=== PATIENT | male | born 1950 | race Caucasian/White ===

== ENCOUNTER 2019-06-13 23:08 | Inpatient (IN) | payer MEDICARE ==
--- NOTE | 2019-06-13 23:23 | ED Physician Documentation ---
PD HPI ABD PAIN - Stated complaint Stated Complaint: AB PX/VOMITING/CP - Chief complaint Chief Complaint: Abd Pain - History obtained from History obtained from: Patient - History of Present Illness Timing - onset: Enter time (17:00), Today Timing - duration: Hours Timing - details: Abrupt onset, Constant, Waxing and waning Pain level max: 10 Pain level now: 10 Quality: Pain Location: All over / everywhere Radiation: Other (does not radiate) Associated symptoms: Nausea, Vomiting. No: Fever, Diarrhea, Constipation, Melena, Hematochezia Similar symptoms before: Has not had sx before Recently seen: Not recently seen - Additional information Additional information: c/o sudden onset diffuse abdominal pain approximately 5 PM shortly after eating a meal, associated with nausea and vomiting. Has not had similar symptoms before. Review of Systems Constitutional: reports: Reviewed and negative Eyes: reports: Reviewed and negative Ears: reports: Reviewed and negative Nose: reports: Reviewed and negative Throat: reports: Reviewed and negative Cardiac: reports: Reviewed and negative Respiratory: reports: Reviewed and negative GI: reports: Abdominal Pain, Nausea, Vomiting. denies: Abdominal Swelling, Constipation, Diarrhea, Hematemesis, Bloody / black stool : denies: Dysuria, Frequency, Hematuria Skin: reports: Reviewed and negative Musculoskeletal: reports: Reviewed and negative Neurologic: reports: Reviewed and negative PD PAST MEDICAL HISTORY - Past Medical History Past Medical History: No - Past Surgical History Past Surgical History: Yes General: Other (umbilical hernia repair) - Allergies Allergies/Adverse Reactions: Allergies Allergy/AdvReac Type Severity Reaction Status Date / Time No Known Drug Allergies Allergy Verified 06/13/19 23:13 - Living Situation Living Arrangement: reports: At home - Social History Does the pt smoke?: No - Family History Family history: reports: Non contributory PD ED PE NORMAL - Vitals Vital signs reviewed: Yes - General General: Alert and oriented X 3, Well developed/nourished, Other (obvious severe painful distress) - HEENT HEENT: Moist mucous membranes - Neck Neck: Supple, no meningeal sign - Cardiac Cardiac: RRR, No murmur - Respiratory Respiratory: No respiratory distress, Clear bilaterally - Abdomen Abdomen: Soft, Non distended - Back Back: No CVA TTP - Derm Derm: Normal color, Warm and dry, No rash - Extremities Extremities: No edema PD ED PE EXPANDED - Abdomen Abdomen: Tender to palpation (mild tenderness to palpation periubilicus without rebound or guarding). No: Rebound, Guarding Results - Vitals Vitals: Vital Signs - 24 hr 06/13/19 06/14/19 23:13 01:16 Temperature 36.6 C Heart Rate 65 71 Respiratory 14 16 Rate Blood Pressure 173/71 H 144/54 H O2 Saturation 95 93 Oxygen O2 Source Room air - EKG (time done) No standard instances Rate: Rate (enter#) (67) Rhythm: NSR, LAE [place]: Normal Intervals: Normal [place], Other (NSIVCD) QRS: Normal Ischemia: Normal ST segments - Labs Labs: Laboratory Tests 06/13/19 06/13/19 06/14/19 23:20 23:20 00:57 WBC 12.2 H RBC 4.79 Hgb 15.5 Hct 45.2 MCV 94.4 H MCH 32.4 H MCHC 34.3 RDW 13.4 Plt Count 135 MPV 8.9 Neut # (Auto) 10.4 H Lymph # (Auto) 1.0 L Polk # (Auto) 0.6 Eos # (Auto) 0.0 Baso # (Auto) 0.0 Absolute Nucleated RBC 0.00 Nucleated RBC % 0.0 Sodium 131 L Potassium 3.0 L Chloride 96 L Carbon Dioxide 25 Anion Gap 10.0 BUN 18 Creatinine 0.9 Estimated GFR (MDRD) 83 L Glucose 179 H Lactic Acid Calcium 9.4 Total Bilirubin 0.8 AST 23 ALT 20 Alkaline Phosphatase 67 Total Protein 8.8 H Albumin 5.2 Globulin 3.6 Albumin/Globulin Ratio 1.4 Lipase 25 Urine Color YELLOW Urine Clarity CLEAR Urine pH 5.0 Ur Specific [place] 1.025 Urine Protein NEGATIVE Urine Glucose (UA) NEGATIVE Urine Ketones 15 H Urine Occult Blood NEGATIVE Urine Nitrite NEGATIVE Urine Bilirubin NEGATIVE Urine Urobilinogen 0.2 (NORMAL) Ur Leukocyte Esterase NEGATIVE Ur Microscopic Review NOT INDICATED Urine Culture Comments NOT INDICATED 06/14/19 01:03 WBC RBC Hgb Hct MCV MCH MCHC RDW Plt Count MPV Neut # (Auto) Lymph # (Auto) Polk # (Auto) Eos # (Auto) Baso # (Auto) Absolute Nucleated RBC Nucleated RBC % Sodium Potassium Chloride Carbon Dioxide Anion Gap BUN Creatinine Estimated GFR (MDRD) Glucose Lactic Acid 2.6 H Calcium Total Bilirubin AST ALT Alkaline Phosphatase Total Protein Albumin Globulin Albumin/Globulin Ratio Lipase Urine Color Urine Clarity Urine pH Ur Specific [place] Urine Protein Urine Glucose (UA) Urine Ketones Urine Occult Blood Urine Nitrite Urine Bilirubin Urine Urobilinogen Ur Leukocyte Esterase Ur Microscopic Review Urine Culture Comments - Rads (name of study) CT A/P with IV contrast Radiology: Prelim report reviewed, See rad report, Other (unable to tolerate PO contrast) PD MEDICAL DECISION MAKING - ED course Complexity details: reviewed results, re-evaluated patient, considered differential, d/w patient ED course: D/W Dr. Bennett (senior vice president and chief information officer surgery), recommends admit to hospitalist service. D/W Dr. Suazo, accepts to hospitalist service. Departure - Departure Disposition: ED Place in Observation Clinical Impression: Small bowel obstruction Condition: Stable Discharge Date/Time: 06/14/19 02:52
[2019-06-13] MEDS ORDERED: ONDANSETRON 4 MG/2 ML VIAL ONE (23:35)
[2019-06-13 23:36] LABS: BASOPHILS % (AUTO) 0.3 %; EOSINOPHILS % (AUTO) 0.2 %; HGB - HEMOGLOBIN 15.5 g/dL (14.0-18.0); LYMPHOCYTES % (AUTO) 8.5 %; MEAN CORPUSCULAR HEMOGLOBIN 32.4 pg (27.0-31.0); MEAN CORPUSCULAR HGB CONC 34.3 g/dL (32.0-36.0); MEAN CORPUSCULAR VOLUME 94.4 fL (80.0-94.0); MEAN PLATELET VOLUME 8.9 fL (7.4-11.4); MONOCYTES # (AUTO) 0.6 10^3/uL (0.0-1.0); MONOCYTES % (AUTO) 4.8 %; NEUTROPHILS # (AUTO) 10.4 10^3/uL (1.5-6.6); NEUTROPHILS % (AUTO) 85.3 %; PLT - PLATELET COUNT 135 10^3/uL (130-450); RED BLOOD COUNT 4.79 10^6/uL (4.70-6.10); RED CELL DISTRIBUTION WIDTH 13.4 % (12.0-15.0); WHITE BLOOD COUNT 12.2 x10^3/uL (4.8-10.8)
[2019-06-13] MEDS ORDERED: HYDROmorphone 1 MG/ML CARPUJECT ONE (23:38)
[2019-06-13] MEDS ORDERED: HYDROmorphone 1 MG/ML CARPUJECT IVP STA (23:39)
[2019-06-13] MEDS ORDERED: SODIUM CHLORIDE 0.9% 1,000 ML IV STA (23:39)
[2019-06-13] MEDS ORDERED: ONDANSETRON 4 MG/2 ML VIAL IVP STA (23:39)
[2019-06-13 23:55] LABS: ALBUMIN 5.2 g/dL (3.2-5.5); ALBUMIN/GLOBULIN RATIO 1.4 (1.0-2.2); BILIRUBIN,TOTAL 0.8 mg/dL (0.2-1.0); CALCIUM 9.4 mg/dL (8.5-10.3); CREATININE 0.9 mg/dL (0.6-1.2); TOTAL PROTEIN 8.8 g/dL (6.7-8.2)
[2019-06-13] MEDS ORDERED: IOVERSOL 320 100 ML VIAL IVP ONE (23:55)
[2019-06-13] MEDS ORDERED: IOVERSOL 320 50 ML VIAL ONE (23:56)
[2019-06-14] MEDS ORDERED: PROMETHAZINE INJ 25 MG in SODIUM CHLORIDE 0.9% 50 ML IV STA (00:01)
[2019-06-14] MEDS ORDERED: IOVERSOL 320 100 ML VIAL IVP ONE (00:31)
[2019-06-14] MEDS ORDERED: HYDROmorphone 1 MG/ML CARPUJECT IVP STA (00:50)
--- NOTE | 2019-06-14 01:14 | CT Report ---
Reason: abd. pain, diffuse Procedure Date: 06/14/2019 Accession Number: [id number] / [id number] Procedure: CT - Abdomen/Pelvis W CPT Code: Final Report FULL RESULT: EXAM: CT ABDOMEN AND PELVIS EXAM DATE: 06/14/2019 12:32 AM. CLINICAL HISTORY: Abd. pain, diffuse. COMPARISONS: None. TECHNIQUE: Routine helical CT imaging was performed through the abdomen and pelvis. IV contrast: OPTIRAY 320. Enteric contrast: No. Reconstructions: Coronal and sagittal. In accordance with CT protocol optimization, one or more of the following dose reduction techniques were utilized for this exam: automated exposure control, adjustment of mA and/or KV based on patient size, or use of iterative reconstructive technique. FINDINGS: Lung Bases: Unremarkable. Liver: The liver is normal in size. This is cyst along the peripheral aspect of the right lobe with a diameter measuring 13 mm x 7 mm. Gallbladder/Bile Ducts: Unremarkable. Spleen: Normal. Pancreas: Normal. Adrenal Glands: Normal. Kidneys: The kidneys are normally positioned and excreting contrast. There are 2 contiguous cysts in the peripheral aspect of the left lower kidney. 1 cyst has a diameter measuring 35 mm x 32 mm and the other cyst measures 35 mm x 41 mm. These have water attenuation. Peritoneal Cavity/Bowel: Normal. No free fluid, free air or adenopathy. No masses or acute inflammatory process. There is moderate fluid-filled distention of the proximal and mid small bowel there is a transition point in the mid small bowel without any obstructing lesions. The distal small bowel was completely decompressed. There is a small amount of inflammation within the adjacent mesentery related to the distended loops. There is a small amount of free fluid near the edge of the liver. There are no inflammatory changes of the colon. Pelvic Organs: Normal. The bladder and visualized pelvic organs are within normal limits. Vasculature: No aneurysms or other significant abnormality. Bones: No significant abnormality. Other: None. IMPRESSION: 1. Findings compatible with partial or early complete mid small bowel obstruction without any discernible obstructing masses. Findings may be related to adhesions versus inflammation. There is some edema or inflammatory changes in the adjacent small bowel mesentery and a small amount of free fluid along the superior edge of the liver. 2. Two prominent cysts along the peripheral inferior aspect of the left kidney. RADIA
[2019-06-14 02:10] LABS: BILIRUBIN,URINE NEGATIVE (NEGATIVE); GLUCOSE, URINE (UA) NEGATIVE (NEGATIVE); KETONES,URINE (UA) 15 mg/dL (NEGATIVE); LEUKOCYTE ESTERASE, URINE NEGATIVE (NEGATIVE); NITRITE,URINE NEGATIVE (NEGATIVE); OCCULT BLOOD,URINE NEGATIVE (NEGATIVE); PROTEIN,URINE NEGATIVE (NEGATIVE); UROBILINOGEN,URINE 0.2 (NORMAL) E.U./dL (NORMAL)
[2019-06-14 02:11] LABS: CLARITY,URINE CLEAR (CLEAR)
[2019-06-14] MEDS ORDERED: HYDROmorphone 0.5 MG/0.5 ML SYRINGE IVP PRN (02:17)
[2019-06-14] MEDS ORDERED: ONDANSETRON 4 MG/2 ML VIAL IVP PRN (02:17)
[2019-06-14] MEDS ORDERED: PROCHLORPERAZINE 10 MG/2 ML VIAL IVP PRN (02:17)
[2019-06-14] MEDS ORDERED: SODIUM CHLORIDE 0.9% 1,000 ML IV ONE (02:20)
--- NOTE | 2019-06-14 02:25 | HISTORY & PHYSICAL EXAMINATION ---
Chief Complaint - Chief Complaint Chief Complaint: Abdominal pain History of Present Illness - Admitted From Admitted From:: Home - History Obtained From Records Reviewed: Yes History obtained from: Patient, ER Physician, EMR - History of Present Illness HPI Comment/Other: This is a 69 year old male with a past medical history significant for alcoho lisluci in the past who presents today complaining of severe abdominal pain. He states he ate some candy and nuts on a walk back from the store. He developed severe epigastric abdominal pain that was a 7/10 and nonradiating about 1-2 hours after he ate. He had 3-4 episodes of non-bloody emesis. He developed sharp chest pain behind his sternum after he vomited that was mild in nature. He has not had a bowl movement recently. He is not passing gas. Reports having a prior umbilical hernia repair otherwise no abdominal surgeries in the past. No similar episodes of abdominal pain in the past. He reports having a colonoscopy last year that was unremarkable. He currently reports his pain is 2/10 after receiving dilaudid IV. He no longer feels nauseous as well. He is an ex-smoker after quitting at the age of 42. He has not drank alcohol in 26 years. Reports a prior history of hyperlipidemia but that is now controlled without medication. Denies any cardiac history in the past including coronary artery disease. In the emergency department, a CT of the abdomen/pelvis was obtained which revealed a small bowel obstruction. He had a mild white count of 12k and an elevated lactic acid at 2.6. These findings were discussed with the general surgeon instrument/control technician who recommended admission to the medicine service. He received a litre of saline, multiple doses of dilaudid IV, and zofran/phenergan IV for n ausea. I did discuss goals of care with the patient and he would like to be a full code. History - Past Medical History Cardiovascular: reports: High cholesterol - Past Surgical History General: reports: Colonoscopy, Other (Umbilical hernia repair.) Ortho: reports: Knee replacement - Family & Social History Family History: Mother: , Father: Family History Comment/Other: His mother was an alcoholic and passed way from an unknown cancer. His father also from lung and bone cancer to his knowledge. Living arrangement: At home Living Situation: With spouse/s.o. Social History Notes: He lives here on [facility] with his . They have four kids and [place]. 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 He was previously an alcoholic but quit drinking over 26 years ago. He quit smoking at the age of 42 after smoking pack per day for 25 years. Meds/Allgy - Allergies Allergies/Adverse Reactions: Allergies Allergy/AdvReac Type Severity Reaction Status Date / Time No Known Drug Allergies Allergy Verified 06/13/19 23:13 Review of Systems - Constitutional Constitutional: reports: Malaise. denies: Fever, Chills, Weakness - Eyes Eyes: denies: Blurred vision - Cardiovascular Cariovascular: reports: Chest pain (After vomiting). denies: Exertional dyspnea, Decr. exercise tolerance - Respiratory Respiratory: denies: SOB at rest, SOB with exertion - Gastrointestinal Gastrointestinal: reports: Abdominal pain, Constipation, Change in bowel habits, Nausea, Vomiting, Reflux/heartburn. denies: Diarrhea, Bloody stools, Arnaldo blood emesis, Coffee grounds emesis - Genitourinary Genitourinary: denies: Dysuria, Frequency, Hematuria - Musculoskeletal Musculoskeletal: denies: Limited range of motion - Integumentary Integumentary: reports: Rash - Neurological Neurological: denies: General weakness, Focal weakness, Headache - All Other Systems All Other Systems: reports: Reviewed and negative Prior Level of Functionality: He is independent with his ADL's. Exam - Vital Signs Reviewed Vital Signs: Yes Vital Signs: Vital Signs x48h Temp Pulse Resp BP Pulse Ox 06/14/19 01:16 71 16 144/54 H 93 06/13/19 23:13 36.6 C 65 14 173/71 H 95 - Physical Exam General Appearance: positive: No acute distress, Alert Eyes Bilateral: positive: Normal inspection, Conjunctivae nml ENT: positive: ENT inspection nml Neck: positive: Nml inspection Respiratory: positive: No respiratory distress. negative: Wheezes, Rales Cardiovascular: positive: Regular rate & rhythm, No murmur. negative: Tachycardia, Bradycardia Abdomen: positive: No distention, Tenderness (Mild tenderness in epigastric region.), Abnml bowel sounds (Hypoactive.). negative: Non-tender, Guarding, Rebound Skin: positive: No rash, Warm, Dry, Other (Psoriatic lesion located over the anterior mcmanus.) Extremities: positive: Full ROM, No pedal edema Neurologic/Psychiatric: positive: Oriented x3, Motor nml. negative: Disoriented to person, Disoriented to place, Disoriented to time Conclusion/Plan - Problem List (1) Small bowel obstruction Conclusion/Plan: Evident on CT of the abdomen/pelvis. No obvious masses noted although there is mild mesenteric edema. Lactic acid is elevated at 2.6. Will hydrate him with IV saline. Dilaudid IV for pain control. Protonix IV. Zofran and Compazine IV as needed for nausea/vomiting. Will place NG tube if his vomiting returns. Recheck lactic acid as if this continues to rise, there will be a higher suspicion for possible mesenteric ischemia. General Surgery consult. Will consider gastrografin challenge. (2) Hyponatremia Conclusion/Plan: Likely hypovolemic hyponatremia. This should improve with IV saline. Monitor sodium. (3) Hypokalemia Conclusion/Plan: Likely secondary to GI losses. Will add potassium to IV fluid. - Lab Results Lab results reviewed: Yes Abhishek Bones: 06/14/19 05:07 06/14/19 05:07 - Diagnostic Imaging Results Diagnostic Imaging Results: positive: Final report reviewed - EKG Results EKG Interpreted Independently: Yes EKG Comparison: No prior EKG EKG Findings: EKG shows a sinus rhythm without ST segment changes. Core Measures - Anticipated LOS I expect patient to be DC'd or transferred within 96 hours.: Yes - Issues Hospital Issues and Management Plan: 69 year old male with small bowel obstruction. Will admit for IV hydration, pain control, and possible NG placement. General Surgery consult. - DVT/VTE - Prophylaxis VTE/DVT Device ordered at admit?: Yes VTE/DVT Prophylaxis med ordered at admit?: Yes
[2019-06-14] MEDS ORDERED: NS W/20 MEQ KCL 1,000 ML IV SCH (03:00)
[2019-06-14 05:18] LABS: BASOPHILS % (AUTO) 0.2 %; HGB - HEMOGLOBIN 14.8 g/dL (14.0-18.0); LYMPHOCYTES # (AUTO) 0.6 10^3/uL (1.5-3.5); LYMPHOCYTES % (AUTO) 6.3 %; MEAN CORPUSCULAR HGB CONC 33.6 g/dL (32.0-36.0); MEAN PLATELET VOLUME 8.8 fL (7.4-11.4); MONOCYTES # (AUTO) 0.5 10^3/uL (0.0-1.0); PLT - PLATELET COUNT 108 10^3/uL (130-450); RED BLOOD COUNT 4.63 10^6/uL (4.70-6.10); RED CELL DISTRIBUTION WIDTH 13.4 % (12.0-15.0); WHITE BLOOD COUNT 9.1 x10^3/uL (4.8-10.8)
[2019-06-14 05:29] LABS: CALCIUM 8.9 mg/dL (8.5-10.3); CREATININE 0.9 mg/dL (0.6-1.2); MAGNESIUM 2.3 mg/dL (1.7-2.8); PHOSPHORUS 3.5 mg/dL (2.5-4.6)
[2019-06-14 05:33] LABS: HB2 TOTAL 15.4 g/dL; HEMOGLOBIN A1C 0.5 g/dL; HEMOGLOBIN A1C % 5.1 % (4.6-6.2)
[2019-06-14] MEDS: PANTOPRAZOLE 40 MG VIAL IVP SCH (06:07)
[2019-06-14] MEDS: SODIUM CHLORIDE FLUSH 0.9% 10 ML SYRINGE IVP PRN (06:08)
[2019-06-14] MEDS: LACTATED RINGERS 1,000 ML IV SCH ×2 (08:10→17:54)
[2019-06-14] MEDS: SODIUM CHLORIDE FLUSH 0.9% 10 ML SYRINGE IVP SCH ×2 (09:43→17:53)
[2019-06-14] MEDS: ENOXAPARIN 40 MG/0.4 ML SYRINGE SUBQ SCH (09:43)
--- NOTE | 2019-06-14 09:46 | HISTORY & PHYSICAL EXAMINATION ---
Chief Complaint - Chief Complaint Chief Complaint: LUQ upper abdominal pain Abdominal Pain HPI - History Obtained From Records Reviewed: RN notes reviewed, Old records reviewed History obtained from: Patient Exam limitations: No limitations - History of Present Illness HPI Comment/Other: Jesus is a very pleasant 69 year old male with a PSH of umbilical hernia repair with mesh 10 years ago and a PMH significant for alcoholism in the past who presents today complaining of rapid onset severe abdominal pain. He states he ate some candy and nuts on a walk back from the store. He developed severe epigastric abdominal pain that was a 7/10 and nonradiating about 1-2 hours after he ate. He had 3-4 episodes of large volume non-bloody emesis. He developed sharp chest pain behind his sternum after he vomited that was mild in nature. He has not had a bowl movement recently. He is not passing gas. No similar episodes of abdominal pain in the past. He reports having a colonoscopy last year that was unremarkable. He pain improved after his large volume vomiting, but came into the ER to be evaluated. In the emergency department, a CT of the abdomen/pelvis was obtained which revealed a small bowel obstruction. He had a mild white count of 12k and an elevated lactic acid at 2.6. I was contacted and the findings were discussed with the ER physician and admission to the medicine service was done. He received a litre of saline, multiple doses of dilaudid IV, and zofran/phenergan IV for nausea.At time of admission he reports his pain is 2/10 after receiving dilaudid IV. He no longer feels nauseous as well. He is an ex-smoker after quitting at the age of 42. He has not drank alcohol in 26 years. Reports a prior history of hyperlipidemia controlled without medication. Denies any cardiac history in the past including coronary artery disease. This am he reports near complete resolution of his symptoms. He doesn't have any nausea, no episodes of vomiting, and no longer has the cramping pain, just a dull ache in the general area like a soreness. He says he his appetite has returned and thought about breakfast. However, he still is not passing gas. He has been up and walking in the room and up to the chair. PMH/PSH - Past Medical History Cardiovascular: positive: High cholesterol - Past Surgical History General: positive: Colonoscopy, Other (Umbilical hernia repair.) Ortho: positive: Knee replacement Social & Family Hx - Social History Does the pt smoke?: No Smoking Status: Former smoker Does the pt drink ETOH?: No Meds/Allgy - Allergies Allergies/Adverse Reactions: Allergies Allergy/AdvReac Type Severity Reaction Status Date / Time No Known Drug Allergies Allergy Verified 06/13/19 23:13 Review of Systems - Constitutional Constitutional: reports: Fatigue. denies: Fever, Chills, Night sweats - Eyes Eyes: denies: Pain - Ears, Nose & Throat Ears, Nose & Throat: denies: Ear pain - Cardiovascular Cariovascular: denies: Irregular heart rate, Palpitations, Chest pain - Respiratory Respiratory: denies: Cough, Sputum production - Gastrointestinal Gastrointestinal: reports: Other (as of this am). denies: Abdominal pain, Abdominal distention, Constipation - Genitourinary Genitourinary: denies: Dysuria - All Other Systems All Other Systems: reports: Reviewed and negative Exam - Vital Signs Vital Signs: Vital Signs x48h Temp Pulse Resp BP Pulse Ox 06/14/19 08:08 37.2 C 60 16 118/50 L 96 06/14/19 03:40 37.0 C 66 17 135/70 H 95 - Physical Exam General Appearance: positive: No acute distress Eyes Bilateral: positive: Normal inspection ENT: positive: ENT inspection nml Neck: positive: Nml inspection Respiratory: positive: Breath sounds nml Cardiovascular: positive: Regular rate & rhythm Abdomen: positive: Non-tender, Nml bowel sounds, No distention Skin: positive: Color nml, Warm, Dry Extremities: positive: Full ROM, Nml appearance Neurologic/Psychiatric: positive: Oriented x3, Mood/affect nml Results - Lab Results Fish Bones: 06/14/19 05:07 06/14/19 05:07 Other Lab Results: Lab Results x24hrs 06/14/19 06/14/19 06/14/19 Range/Units 05:07 05:07 05:07 WBC (4.8-10.8) x10^3/uL RBC (4.70-6.10) 10^6/uL Hgb (14.0-18.0) g/dL Hct (42.0-52.0) % MCV (80.0-94.0) fL MCH (27.0-31.0) pg MCHC (32.0-36.0) g/dL RDW (12.0-15.0) % Plt Count (130-450) 10^3/uL MPV (7.4-11.4) fL Neut # (Auto) (1.5-6.6) 10^3/uL Lymph # (Auto) (1.5-3.5) 10^3/uL [place] # (Auto) (0.0-1.0) 10^3/uL Eos # (Auto) (0.0-0.7) 10^3/uL Baso # (Auto) (0.0-0.1) 10^3/uL Absolute Nucleated RBC x10^3/uL Nucleated RBC % /100WBC Sodium 135 (135-145) mmol/L Potassium 4.2 (3.5-5.0) mmol/L Chloride 103 (101-111) mmol/L Carbon Dioxide 24 (21-32) mmol/L Anion Gap 8.0 (6-13) BUN 17 (6-20) mg/dL Creatinine 0.9 (0.6-1.2) mg/dL Estimated GFR (MDRD) 83 L (>89) Glucose 119 H (70-100) mg/dL Glycated Hemoglobin 5.1 (4.6-6.2) % Estim Average Glucose 100 (70-100) Lactic Acid 1.9 (0.5-2.2) mmol/L Calcium 8.9 (8.5-10.3) mg/dL Phosphorus 3.5 (2.5-4.6) mg/dL Magnesium 2.3 (1.7-2.8) mg/dL Total Bilirubin (0.2-1.0) mg/dL AST (10-42) IU/L ALT (10-60) IU/L Alkaline Phosphatase (42-121) IU/L Total Protein (6.7-8.2) g/dL Albumin (3.2-5.5) g/dL Globulin (2.1-4.2) g/dL Albumin/Globulin Ratio (1.0-2.2) Lipase (22-51) U/L Urine Color Urine Clarity (CLEAR) Urine pH (5.0-7.5) PH Ur Specific [place] (1.002-1.030) Urine Protein (NEGATIVE) mg/dL Urine Glucose (UA) (NEGATIVE) mg/dL Urine Ketones (NEGATIVE) mg/dL Urine Occult Blood (NEGATIVE) Urine Nitrite (NEGATIVE) Urine Bilirubin (NEGATIVE) Urine Urobilinogen (NORMAL) E.U./dL Ur Leukocyte Esterase (NEGATIVE) Ur Microscopic Review Urine Culture Comments 06/14/19 06/14/19 06/14/19 Range/Units 05:07 01:03 00:57 WBC 9.1 (4.8-10.8) x10^3/uL RBC 4.63 L (4.70-6.10) 10^6/uL Hgb 14.8 (14.0-18.0) g/dL Hct 44.0 (42.0-52.0) % MCV 95.0 H (80.0-94.0) fL MCH 32.0 H (27.0-31.0) pg MCHC 33.6 (32.0-36.0) g/dL RDW 13.4 (12.0-15.0) % Plt Count 108 L (130-450) 10^3/uL MPV 8.8 (7.4-11.4) fL Neut # (Auto) 8.0 H (1.5-6.6) 10^3/uL Lymph # (Auto) 0.6 L (1.5-3.5) 10^3/uL [place] # (Auto) 0.5 (0.0-1.0) 10^3/uL Eos # (Auto) 0.0 (0.0-0.7) 10^3/uL Baso # (Auto) 0.0 (0.0-0.1) 10^3/uL Absolute Nucleated RBC 0.00 x10^3/uL Nucleated RBC % 0.0 /100WBC Sodium (135-145) mmol/L Potassium (3.5-5.0) mmol/L Chloride (101-111) mmol/L Carbon Dioxide (21-32) mmol/L Anion Gap (6-13) BUN (6-20) mg/dL Creatinine (0.6-1.2) mg/dL Estimated GFR (MDRD) (>89) Glucose (70-100) mg/dL Glycated Hemoglobin (4.6-6.2) % Estim Average Glucose (70-100) Lactic Acid 2.6 H (0.5-2.2) mmol/L Calcium (8.5-10.3) mg/dL Phosphorus (2.5-4.6) mg/dL Magnesium (1.7-2.8) mg/dL Total Bilirubin (0.2-1.0) mg/dL AST (10-42) IU/L ALT (10-60) IU/L Alkaline Phosphatase (42-121) IU/L Total Protein (6.7-8.2) g/dL Albumin (3.2-5.5) g/dL Globulin (2.1-4.2) g/dL Albumin/Globulin Ratio (1.0-2.2) Lipase (22-51) U/L Urine Color YELLOW Urine Clarity CLEAR (CLEAR) Urine pH 5.0 (5.0-7.5) PH Ur Specific [place] 1.025 (1.002-1.030) Urine Protein NEGATIVE (NEGATIVE) mg/dL Urine Glucose (UA) NEGATIVE (NEGATIVE) mg/dL Urine Ketones 15 H (NEGATIVE) mg/dL Urine Occult Blood NEGATIVE (NEGATIVE) Urine Nitrite NEGATIVE (NEGATIVE) Urine Bilirubin NEGATIVE (NEGATIVE) Urine Urobilinogen 0.2 (NORMAL) (NORMAL) E.U./dL Ur Leukocyte Esterase NEGATIVE (NEGATIVE) Ur Microscopic Review NOT INDICATED Urine Culture Comments NOT INDICATED 06/13/19 06/13/19 Range/Units 23:20 23:20 WBC 12.2 H (4.8-10.8) x10^3/uL RBC 4.79 (4.70-6.10) 10^6/uL Hgb 15.5 (14.0-18.0) g/dL Hct 45.2 (42.0-52.0) % MCV 94.4 H (80.0-94.0) fL MCH 32.4 H (27.0-31.0) pg MCHC 34.3 (32.0-36.0) g/dL RDW 13.4 (12.0-15.0) % Plt Count 135 (130-450) 10^3/uL MPV 8.9 (7.4-11.4) fL Neut # (Auto) 10.4 H (1.5-6.6) 10^3/uL Lymph # (Auto) 1.0 L (1.5-3.5) 10^3/uL [place] # (Auto) 0.6 (0.0-1.0) 10^3/uL Eos # (Auto) 0.0 (0.0-0.7) 10^3/uL Baso # (Auto) 0.0 (0.0-0.1) 10^3/uL Absolute Nucleated RBC 0.00 x10^3/uL Nucleated RBC % 0.0 /100WBC Sodium 131 L (135-145) mmol/L Potassium 3.0 L (3.5-5.0) mmol/L Chloride 96 L (101-111) mmol/L Carbon Dioxide 25 (21-32) mmol/L Anion Gap 10.0 (6-13) BUN 18 (6-20) mg/dL Creatinine 0.9 (0.6-1.2) mg/dL Estimated GFR (MDRD) 83 L (>89) Glucose 179 H (70-100) mg/dL Glycated Hemoglobin (4.6-6.2) % Estim Average Glucose (70-100) Lactic Acid (0.5-2.2) mmol/L Calcium 9.4 (8.5-10.3) mg/dL Phosphorus (2.5-4.6) mg/dL Magnesium (1.7-2.8) mg/dL Total Bilirubin 0.8 (0.2-1.0) mg/dL AST 23 (10-42) IU/L ALT 20 (10-60) IU/L Alkaline Phosphatase 67 (42-121) IU/L Total Protein 8.8 H (6.7-8.2) g/dL Albumin 5.2 (3.2-5.5) g/dL Globulin 3.6 (2.1-4.2) g/dL Albumin/Globulin Ratio 1.4 (1.0-2.2) Lipase 25 (22-51) U/L Urine Color Urine Clarity (CLEAR) Urine pH (5.0-7.5) PH Ur Specific [place] (1.002-1.030) Urine Protein (NEGATIVE) mg/dL Urine Glucose (UA) (NEGATIVE) mg/dL Urine Ketones (NEGATIVE) mg/dL Urine Occult Blood (NEGATIVE) Urine Nitrite (NEGATIVE) Urine Bilirubin (NEGATIVE) Urine Urobilinogen (NORMAL) E.U./dL Ur Leukocyte Esterase (NEGATIVE) Ur Microscopic Review Urine Culture Comments - Diagnostic Imaging Results Diagnostic Imaging Results Comments: CT scan images and report reviewed Impression/Plan - Problem List Problem List: 69 yo with SBO most likely secondary to surgical adhesions. An in depth discussion was aryan using diagrams and props regarding the normal anatomy and physiology and then the development and possible etiologies of a small bowel obstruction. We discussed his PSH and how that is most likely the source of adhesions causing this episode and his findings on his CT scan. WE discussed the Surgical and non-surgical plans of care and the short term and correction sandy ccess of each options. Given how quickly he has improved we are hopeful he will do well with non-surgical management. Although his symptoms have improved he is still not passing gas. We discussed it has not yet even been 24 hours of conservative care and that we need to be patient for the bowel to recovery and return to normal function. Recommend to continue conservative care with NPO, IVF, and bowel rest, I agree that there is no need for NG at this time. We discussed that hopefully his bowel function will return sometime today and we will know by his passing gas. Once he starts passing gas we can start him on clears and move him along. Once he is tolerating liquids well enough to not need IVF I would be comfortable with d/c home. He is a very reliable patient.
--- NOTE | 2019-06-14 14:25 | PHARMACY PROGRESS NOTE ---
- Best Possible Medication History Admit Date and Time: 06/14/19216 Processed by: Pharmacy Medication History completed: Yes Patient Interview: Completed (Patient states he takes no prescription medications at home. No medication fill history yielded after running ext med hx report) Secondary Source(s): Insurance records As the person ultimately responsible for medication therapy, providers are able to order a medication from an existing home medication list in [facility] via the "Reconcile Routine" prior to Confirmation of that medication by account support rep. Such practice is discouraged except when the physician, in their clinical judgment, deems that a medical need exists for a medication without regard to previous use.
--- NOTE | 2019-06-14 18:40 | PROVIDER PROGRESS NOTE ---
Subjective - Prog Note Date Prog Note Date: 06/14/19 Prog Note Time: 18:38 - Subjective Pt reports feeling: Improved Current Medications - Current Medications Current Medications: Medications Summary Enoxaparin Sodium (Lovenox) 40 mg SUBQ DAILY [facility] Last Admin: 06/14/19 09:43 Dose: 40 mg Subcutaneous Injection Site Document 06/14/19 09:43 SAT (Rec: 06/14/19 09:43 SAT [place] [id number]) Site Subcutaneous Injection Site Right Abdomen Hydromorphone HCl (Dilaudid Inj Syringe) 1 mg IVP Q2H PRN PRN Reason: Pain 8 to 10 Last Admin: 06/14/19 04:54 Dose: 1 mg Pain Assessment Document 06/14/19 04:54 DMS (Rec: 06/14/19 04:54 DMS [place] [id number]) Pain Level Pain Scale Used 0-10 Intensity (0-10) 8 Re-Assess: Pain Reassessment Document 06/14/19 05:24 DMS (Rec: 06/14/19 06:07 DMS [id number]) Reassessment Effective/Ineffective Effective Lactated Ringer's (Lr) 1,000 mls @ 100 mls/hr IV .Q10H [facility] Last Admin: 06/14/19 17:54 Dose: 100 mls/hr Medication Titration Document 06/14/19 17:54 AB (Rec: 06/14/19 17:54 AB [place] [id number]) Titration Intake Container Volume 1,000 Elapsed Time 9h 44m Titration Dosing IV Rate 100 Increase/Decrease Started/Running Cumulative Dose Not Applicable Total Intake (Rx) 973.333 Volume Adjustment/Waste 0 Ondansetron HCl (Zofran Inj) 4 mg IVP Q6HR PRN PRN Reason: Nausea / Vomiting Last Admin: 06/14/19 04:54 Dose: 4 mg Re-Assess: General PRN Medication Reasses Document 06/14/19 05:24 DMS (Rec: 06/14/19 06:07 [place] [id number]) Reassessment Effective/Ineffective Effective Pantoprazole Sodium (Protonix) 40 mg IVP QDAC [facility] Last Admin: 06/14/19 06:07 Dose: 40 mg Sodium Chloride (Normal Saline Flush 0.9%) 10 ml IVP PRN PRN PRN Reason: NEEDED PER PROVIDER ORDERS Last Admin: 06/14/19 06:08 Dose: 10 ml Sodium Chloride (Normal Saline Flush 0.9%) 10 ml IVP 0100,0900,1700 DALILA Last Admin: 06/14/19 17:53 Dose: Not Given Non-Admin Reason: IVF ongoing Discontinued Medications Hydromorphone HCl (Dilaudid Inj Carp) 1 mg IVP ONCE STA Stop: 06/13/19 23:40 Last Admin: 06/13/19 23:39 Dose: 1 mg Re-Assess: Pain Reassessment Document 06/14/19 00:09 AD (Rec: 06/14/19 01:07 AD [id number]) Reassessment Effective/Ineffective Ineffective Hydromorphone HCl (Dilaudid Inj Carp) 1 mg IVP ONCE STA Stop: 06/14/19 00:51 Last Admin: 06/14/19 01:06 Dose: 1 mg Re-Assess: Pain Reassessment Document 06/14/19 01:36 AD (Rec: 06/14/19 01:52 AD [id number]) Reassessment Pain Scale Used 0-10 Pain Intensity (0-10) 2 Effective/Ineffective Effective Unable to Assess Asleep Sodium Chloride (Normal Saline 0.9%) 1,000 mls @ 0 mls/hr IV .Q0M STA Stop: 06/13/19 23:40 Last Infusion: 06/14/19 01:52 Dose: 0 mls/hr Medication Titration Document 06/14/19 01:52 AD (Rec: 06/14/19 01:52 AD [id number]) Titration Intake Titration Intake 1,000 Cumulative Intake 1,000 Container Volume 0 Elapsed Time 2h 8m Titration Dosing IV Rate 0 Increase/Decrease Infused Cumulative Dose Not Applicable Total Intake (Rx) 1,000 Volume Adjustment/Waste 0 Promethazine HCl 25 mg/ Sodium (Chloride) 51 mls @ 100 mls/hr IV ONCE STA Stop: 06/14/19 00:31 Last Infusion: 06/14/19 01:52 Dose: 0 mls/hr Medication Titration Document 06/14/19 01:52 AD (Rec: 06/14/19 01:52 AD [id number]) Titration Intake Titration Intake 51 Cumulative Intake 51 Container Volume 0 Elapsed Time 1h 42m Titration Dosing IV Rate 0 Increase/Decrease Infused Cumulative Dose 24.9999 Total Intake (Rx) 51 Volume Adjustment/Waste 0 Sodium Chloride (Normal Saline 0.9%) 1,000 mls @ 999 mls/hr IV ONCE ONE Stop: 06/14/19 03:20 Last Infusion: 06/14/19 04:21 Dose: 0 mls/hr Medication Titration Document 06/14/19 04:21 [facility] (Rec: 06/14/19 04:21 DMS [id number]) Titration Intake Titration Intake 1,000 Cumulative Intake 1,000 Container Volume 0 Elapsed Time 1h 9m Titration Dosing IV Rate 0 Increase/Decrease Infused Cumulative Dose Not Applicable Total Intake (Rx) 1,000 Volume Adjustment/Waste 0 Potassium Chloride/Sodium Chloride (Normal Saline 0.9% W/20 Meq Kcl) 1,000 mls @ 150 mls/hr IV .Q6H40M [facility] Last Infusion: 06/14/19 08:09 Dose: 0 mls/hr Medication Titration Document 06/14/19 08:09 SAT (Rec: 06/14/19 08:09 SAT [id number]) Titration Intake Titration Intake 569.5 Cumulative Intake 572 Container Volume 0 Elapsed Time 3h 49m Titration Dosing IV Rate 0 Increase/Decrease Infused Cumulative Dose Not Applicable Total Intake (Rx) 572 Volume Adjustment/Waste 428 Ioversol (Optiray 320) 100 ml IVP ONCE ONE Stop: 06/14/19 00:32 Last Admin: 06/14/19 00:31 Dose: 100 ml Ondansetron HCl (Zofran Inj) 4 mg IVP ONCE STA Stop: 06/13/19 23:40 Last Admin: 06/13/19 23:35 Dose: 4 mg Objective - Vital Signs/Intake & Output Reviewed Vital Signs: Yes Vital Signs: Vital Signs x48h Temp Pulse Resp BP Pulse Ox 06/14/19 15:50 37.0 C 64 20 127/62 95 06/14/19 11:33 36.8 C 60 16 103/52 L 96 Intake & Output: Intake & Output 06/11/19 06/12/19 06/13/19 06/14/19 23:59 23:59 23:59 23:59 Intake Total 4063.333 Balance 4063.333 - Objective General Appearance: positive: No acute distress Eyes Bilateral: positive: Normal inspection ENT: positive: ENT inspection nml Neck: positive: Nml inspection Respiratory: positive: Chest non-tender, No respiratory distress, Breath sounds nml Cardiovascular: positive: Regular rate & rhythm, No murmur, No gallop Abdomen: positive: No distention, Abnml bowel sounds, Other (Mild generalized tenderness, slightly worse at the periumbilical region, with hypoactive bowel sounds throughout, and essentially absent in the left lower quadrant). negative: Guarding, Rebound, Hepatomegaly, Splenomegaly Skin: positive: Color nml, No rash Extremities: positive: Non-tender, Full ROM, Nml appearance Neurologic/Psychiatric: positive: Oriented x3, CN's nml (2-12), Motor nml, Sensation nml - Lab Results Fish Bones: 06/14/19 05:07 06/14/19 05:07 Other Labs: Lab Results x24hrs 06/14/19 06/14/19 06/14/19 Range/Units 05:07 05:07 05:07 WBC (4.8-10.8) x10^3/uL RBC (4.70-6.10) 10^6/uL Hgb (14.0-18.0) g/dL Hct (42.0-52.0) % MCV (80.0-94.0) fL MCH (27.0-31.0) pg MCHC (32.0-36.0) g/dL RDW (12.0-15.0) % Plt Count (130-450) 10^3/uL MPV (7.4-11.4) fL Neut # (Auto) (1.5-6.6) 10^3/uL Lymph # (Auto) (1.5-3.5) 10^3/uL [place] # (Auto) (0.0-1.0) 10^3/uL Eos # (Auto) (0.0-0.7) 10^3/uL Baso # (Auto) (0.0-0.1) 10^3/uL Absolute Nucleated RBC x10^3/uL Nucleated RBC % /100WBC Sodium 135 (135-145) mmol/L Potassium 4.2 (3.5-5.0) mmol/L Chloride 103 (101-111) mmol/L Carbon Dioxide 24 (21-32) mmol/L Anion Gap 8.0 (6-13) BUN 17 (6-20) mg/dL Creatinine 0.9 (0.6-1.2) mg/dL Estimated GFR (MDRD) 83 L (>89) Glucose 119 H (70-100) mg/dL Glycated Hemoglobin 5.1 (4.6-6.2) % Estim Average Glucose 100 (70-100) Lactic Acid 1.9 (0.5-2.2) mmol/L Calcium 8.9 (8.5-10.3) mg/dL Phosphorus 3.5 (2.5-4.6) mg/dL Magnesium 2.3 (1.7-2.8) mg/dL Total Bilirubin (0.2-1.0) mg/dL AST (10-42) IU/L ALT (10-60) IU/L Alkaline Phosphatase (42-121) IU/L Total Protein (6.7-8.2) g/dL Albumin (3.2-5.5) g/dL Globulin (2.1-4.2) g/dL Albumin/Globulin Ratio (1.0-2.2) Lipase (22-51) U/L Urine Color Urine Clarity (CLEAR) Urine pH (5.0-7.5) PH Ur Specific [place] (1.002-1.030) Urine Protein (NEGATIVE) mg/dL Urine Glucose (UA) (NEGATIVE) mg/dL Urine Ketones (NEGATIVE) mg/dL Urine Occult Blood (NEGATIVE) Urine Nitrite (NEGATIVE) Urine Bilirubin (NEGATIVE) Urine Urobilinogen (NORMAL) E.U./dL Ur Leukocyte Esterase (NEGATIVE) Ur Microscopic Review Urine Culture Comments 06/14/19 06/14/19 06/14/19 Range/Units 05:07 01:03 00:57 WBC 9.1 (4.8-10.8) x10^3/uL RBC 4.63 L (4.70-6.10) 10^6/uL Hgb 14.8 (14.0-18.0) g/dL Hct 44.0 (42.0-52.0) % MCV 95.0 H (80.0-94.0) fL MCH 32.0 H (27.0-31.0) pg MCHC 33.6 (32.0-36.0) g/dL RDW 13.4 (12.0-15.0) % Plt Count 108 L (130-450) 10^3/uL MPV 8.8 (7.4-11.4) fL Neut # (Auto) 8.0 H (1.5-6.6) 10^3/uL Lymph # (Auto) 0.6 L (1.5-3.5) 10^3/uL [place] # (Auto) 0.5 (0.0-1.0) 10^3/uL Eos # (Auto) 0.0 (0.0-0.7) 10^3/uL Baso # (Auto) 0.0 (0.0-0.1) 10^3/uL Absolute Nucleated RBC 0.00 x10^3/uL Nucleated RBC % 0.0 /100WBC Sodium (135-145) mmol/L Potassium (3.5-5.0) mmol/L Chloride (101-111) mmol/L Carbon Dioxide (21-32) mmol/L Anion Gap (6-13) BUN (6-20) mg/dL Creatinine (0.6-1.2) mg/dL Estimated GFR (MDRD) (>89) Glucose (70-100) mg/dL Glycated Hemoglobin (4.6-6.2) % Estim Average Glucose (70-100) Lactic Acid 2.6 H (0.5-2.2) mmol/L Calcium (8.5-10.3) mg/dL Phosphorus (2.5-4.6) mg/dL Magnesium (1.7-2.8) mg/dL Total Bilirubin (0.2-1.0) mg/dL AST (10-42) IU/L ALT (10-60) IU/L Alkaline Phosphatase (42-121) IU/L Total Protein (6.7-8.2) g/dL Albumin (3.2-5.5) g/dL Globulin (2.1-4.2) g/dL Albumin/Globulin Ratio (1.0-2.2) Lipase (22-51) U/L Urine Color YELLOW Urine Clarity CLEAR (CLEAR) Urine pH 5.0 (5.0-7.5) PH Ur Specific [place] 1.025 (1.002-1.030) Urine Protein NEGATIVE (NEGATIVE) mg/dL Urine Glucose (UA) NEGATIVE (NEGATIVE) mg/dL Urine Ketones 15 H (NEGATIVE) mg/dL Urine Occult Blood NEGATIVE (NEGATIVE) Urine Nitrite NEGATIVE (NEGATIVE) Urine Bilirubin NEGATIVE (NEGATIVE) Urine Urobilinogen 0.2 (NORMAL) (NORMAL) E.U./dL Ur Leukocyte Esterase NEGATIVE (NEGATIVE) Ur Microscopic Review NOT INDICATED Urine Culture Comments NOT INDICATED 06/13/19 06/13/19 Range/Units 23:20 23:20 WBC 12.2 H (4.8-10.8) x10^3/uL RBC 4.79 (4.70-6.10) 10^6/uL Hgb 15.5 (14.0-18.0) g/dL Hct 45.2 (42.0-52.0) % MCV 94.4 H (80.0-94.0) fL MCH 32.4 H (27.0-31.0) pg MCHC 34.3 (32.0-36.0) g/dL RDW 13.4 (12.0-15.0) % Plt Count 135 (130-450) 10^3/uL MPV 8.9 (7.4-11.4) fL Neut # (Auto) 10.4 H (1.5-6.6) 10^3/uL Lymph # (Auto) 1.0 L (1.5-3.5) 10^3/uL [place] # (Auto) 0.6 (0.0-1.0) 10^3/uL Eos # (Auto) 0.0 (0.0-0.7) 10^3/uL Baso # (Auto) 0.0 (0.0-0.1) 10^3/uL Absolute Nucleated RBC 0.00 x10^3/uL Nucleated RBC % 0.0 /100WBC Sodium 131 L (135-145) mmol/L Potassium 3.0 L (3.5-5.0) mmol/L Chloride 96 L (101-111) mmol/L Carbon Dioxide 25 (21-32) mmol/L Anion Gap 10.0 (6-13) BUN 18 (6-20) mg/dL Creatinine 0.9 (0.6-1.2) mg/dL Estimated GFR (MDRD) 83 L (>89) Glucose 179 H (70-100) mg/dL Glycated Hemoglobin (4.6-6.2) % Estim Average Glucose (70-100) Lactic Acid (0.5-2.2) mmol/L Calcium 9.4 (8.5-10.3) mg/dL Phosphorus (2.5-4.6) mg/dL Magnesium (1.7-2.8) mg/dL Total Bilirubin 0.8 (0.2-1.0) mg/dL AST 23 (10-42) IU/L ALT 20 (10-60) IU/L Alkaline Phosphatase 67 (42-121) IU/L Total Protein 8.8 H (6.7-8.2) g/dL Albumin 5.2 (3.2-5.5) g/dL Globulin 3.6 (2.1-4.2) g/dL Albumin/Globulin Ratio 1.4 (1.0-2.2) Lipase 25 (22-51) U/L Urine Color Urine Clarity (CLEAR) Urine pH (5.0-7.5) PH Ur Specific [place] (1.002-1.030) Urine Protein (NEGATIVE) mg/dL Urine Glucose (UA) (NEGATIVE) mg/dL Urine Ketones (NEGATIVE) mg/dL Urine Occult Blood (NEGATIVE) Urine Nitrite (NEGATIVE) Urine Bilirubin (NEGATIVE) Urine Urobilinogen (NORMAL) E.U./dL Ur Leukocyte Esterase (NEGATIVE) Ur Microscopic Review Urine Culture Comments - Diagnostic Imaging Diagnostic Imaging Results: positive: Final report reviewed Assessment/Plan - Problem List (1) Small bowel obstruction Impression: Clinically he is doing much better. He has not requested IV pain medication since early this morning. All sounds are ever so slightly improved, I can hear faint bowel sounds throughout most of the abdomen with the exception of the left lower quadrant.He sitting in a chair, upright, legs crossed, appears to be very comfortable. Because of this, I find it hard to justify placing an NG tube down for decompression, so we will continue observation overnight with a trial of clear liquids.Pending the clinical course tomorrow, if he is not made improvement, we could consider the NG tube, versus reimaging and will discuss further with surgery.On the other hand if he is able to tolerate clear liquid diet, bowel function returns, potentially could discharge home tomorrow on 2019. (2) Hypokalemia Impression: Resolved (3) Hyponatremia Impression: Resolved
[2019-06-15] MEDS: SODIUM CHLORIDE FLUSH 0.9% 10 ML SYRINGE IVP SCH ×2 (00:09→08:58)
[2019-06-15] MEDS: LACTATED RINGERS 1,000 ML IV SCH ×2 (03:57→14:01)
[2019-06-15 05:44] LABS: BASOPHILS % (AUTO) 0.3 %; EOSINOPHILS # (AUTO) 0.1 10^3/uL (0.0-0.7); EOSINOPHILS % (AUTO) 1.8 %; HGB - HEMOGLOBIN 13.5 g/dL (14.0-18.0); LYMPHOCYTES # (AUTO) 1.4 10^3/uL (1.5-3.5); LYMPHOCYTES % (AUTO) 22.5 %; MEAN CORPUSCULAR HEMOGLOBIN 31.9 pg (27.0-31.0); MEAN CORPUSCULAR HGB CONC 33.3 g/dL (32.0-36.0); MEAN PLATELET VOLUME 8.8 fL (7.4-11.4); MONOCYTES # (AUTO) 0.5 10^3/uL (0.0-1.0); MONOCYTES % (AUTO) 8.4 %; NEUTROPHILS # (AUTO) 4.1 10^3/uL (1.5-6.6); NEUTROPHILS % (AUTO) 66.5 %; PLT - PLATELET COUNT 126 10^3/uL (130-450); RED BLOOD COUNT 4.23 10^6/uL (4.70-6.10); RED CELL DISTRIBUTION WIDTH 13.8 % (12.0-15.0); WHITE BLOOD COUNT 6.2 x10^3/uL (4.8-10.8)
[2019-06-15 05:56] LABS: CALCIUM 8.7 mg/dL (8.5-10.3); CREATININE 0.8 mg/dL (0.6-1.2); MAGNESIUM 2.3 mg/dL (1.7-2.8); PHOSPHORUS 2.7 mg/dL (2.5-4.6)
[2019-06-15] MEDS: PANTOPRAZOLE 40 MG VIAL IVP SCH (06:01)
[2019-06-15] MEDS: SODIUM CHLORIDE FLUSH 0.9% 10 ML SYRINGE IVP PRN (06:01)
[2019-06-15] MEDS: ENOXAPARIN 40 MG/0.4 ML SYRINGE SUBQ SCH (08:57)
--- NOTE | 2019-06-15 09:46 | PROVIDER PROGRESS NOTE ---
Subjective - General Admit Date: 06/14/19 - Review of Systems General: positive: No symptoms HEENT: positive: No symptoms Pulmonary: positive: No symptoms Gastrointestinal: positive: No symptoms (Patient reports complete resolution of abdominal pain and nausea. Tolerated diet and would like to eat and go home) All Other Systems: positive: Reviewed and negative Objective - Patient Data Vital Signs: Vital Signs x48h Temp Pulse Resp BP Pulse Ox 06/15/19 07:46 36.6 C 62 16 122/59 L 94 06/15/19 04:00 36.6 C 60 18 113/53 L 92 Weight: Weight 06/13/19 06/14/19 06/15/19 23:59 23:59 23:59 Weight (kg) 110.4 kg 111.5 kg Intake & Output: Intake and Output Totals x24h 06/13/19 06/14/19 06/15/19 23:59 23:59 23:59 Intake Total 4113.333 1600 Balance 4113.333 1600 - Lab Results Lab Results: 06/15/19 05:20 06/15/19 05:20 Other Lab Results: Lab Results x24hrs 06/15/19 06/15/19 Range/Units 05:20 05:20 WBC 6.2 (4.8-10.8) x10^3/uL RBC 4.23 L (4.70-6.10) 10^6/uL Hgb 13.5 L (14.0-18.0) g/dL Hct 40.6 L (42.0-52.0) % MCV 96.0 H (80.0-94.0) fL MCH 31.9 H (27.0-31.0) pg MCHC 33.3 (32.0-36.0) g/dL RDW 13.8 (12.0-15.0) % Plt Count 126 L (130-450) 10^3/uL MPV 8.8 (7.4-11.4) fL Neut # (Auto) 4.1 (1.5-6.6) 10^3/uL Lymph # (Auto) 1.4 L (1.5-3.5) 10^3/uL Hickman # (Auto) 0.5 (0.0-1.0) 10^3/uL Eos # (Auto) 0.1 (0.0-0.7) 10^3/uL Baso # (Auto) 0.0 (0.0-0.1) 10^3/uL Absolute Nucleated RBC 0.00 x10^3/uL Nucleated RBC % 0.0 /100WBC Sodium 138 (135-145) mmol/L Potassium 3.7 (3.5-5.0) mmol/L Chloride 105 (101-111) mmol/L Carbon Dioxide 26 (21-32) mmol/L Anion Gap 7.0 (6-13) BUN 15 (6-20) mg/dL Creatinine 0.8 (0.6-1.2) mg/dL Estimated GFR (MDRD) 95 (>89) Glucose 100 (70-100) mg/dL Calcium 8.7 (8.5-10.3) mg/dL Phosphorus 2.7 (2.5-4.6) mg/dL Magnesium 2.3 (1.7-2.8) mg/dL - Current Medications Current Medications: Current Medications Generic Name Dose Route Start Last Admin Trade Name Freq PRN Reason Stop Dose Admin Enoxaparin Sodium 40 mg 06/14/19 09:00 06/15/19 08:57 Lovenox SUBQ Not Given DAILY DALILA Hydromorphone HCl 1 mg 06/14/19 02:17 06/14/19 04:54 Dilaudid Inj Syringe IVP 1 mg Q2H PRN Administration Pain 8 to 10 Lactated Ringer's 1,000 mls @ 100 mls/hr 06/14/19 07:00 06/15/19 03:57 Lr IV 100 mls/hr .Q10H DALILA Administration Ondansetron HCl 4 mg 06/14/19 02:17 06/14/19 04:54 Zofran Inj IVP 4 mg Q6HR PRN Administration Nausea / Vomiting Pantoprazole Sodium 40 mg 06/14/19 07:00 06/15/19 06:01 Protonix IVP 40 mg QDAC DALILA Administration Sodium Chloride 10 ml 06/14/19 02:17 06/15/19 06:01 Normal Saline Flush 0.9% IVP 10 ml PRN PRN Administration NEEDED PER PROVIDER ORDERS Sodium Chloride 10 ml 06/14/19 09:00 06/15/19 08:58 Normal Saline Flush 0.9% IVP Not Given 0100,0900,1700 DALILA - Physical Exam General Appearance: positive: No acute distress Respiratory: positive: Chest non-tender Cardiovascular: positive: Regular rate & rhythm Abdomen: positive: Non-tender, Nml bowel sounds, No distention. 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 Risk of recurrence and signs & symptoms that would warrant follow up and/or return to the ER were discussed with the patient. He understands this plan and also understand that he is on the medicine service and the hospitalist will make the final decisions on discharge.
[2019-06-15 12:32] VITALS: BP 119/62
--- NOTE | 2019-06-15 13:46 | Discharge Plan ---
Discharge Plan Problem Reviewed?: Yes Disposition: Home, Self Care Condition: Good Diet: Regular Activity Restrictions: No Restrictions Shower Restrictions: No Driving Restrictions: No Weight Bearing: Full Weight Additional Instructions or Follow Up instructions: Try to slowly advance your diet from soft foods to regular foods, and try to ma intain soft regular bowels. Make sure to have a lot of fluids, stay hydrated, eat fruits and vegetables as this will help to avoid a repeat bowel obstruction. No Smoking: If you smoke, Please STOP! Call for help. Follow-up with: Gil Coyle MD [Primary Care Provider] -
--- NOTE | 2019-06-15 13:49 | DISCHARGE SUMMARY ---
"Discharge Summary Admit Date: 06/14/19 Discharge Date: 06/15/19 Discharging Provider: Volodymyr Hood MD Primary Care Provider: Gil Logan Code Status: Attempt Resuscitation Condition at Discharge: Good Discharge Disposition: 01 Home, Self Care - DIAGNOSES Admission Diagnoses: Small Bowel Obstruction Hypokalemia Hyponatremia Discharge Diagnoses with Status of Each Condition: Small bowel obstruction - resolved - HPI History of Present Illness: This is a 69 year old male with a past medical history significant for alcoholism in the past who presents today complaining of severe abdominal pain. He states he ate some candy and nuts on a walk back from the store. He developed severe epigastric abdominal pain that was a 7/10 and nonradiating about 1-2 hours after he ate. He had 3-4 episodes of non-bloody emesis. He developed sharp chest pain behind his sternum after he vomited that was mild in nature. He has not had a bowl movement recently. He is not passing gas. Reports having a prior umbilical hernia repair otherwise no abdominal surgeries in the past. No similar episodes of abdominal pain in the past. He reports having a colonoscopy last year that was unremarkable. He currently reports his pain is 2/10 after receiving dilaudid IV. He no longer feels nauseous as well. He is an ex-smoker after quitting at the age of 42. He has not drank alcohol in 26 years. Reports a prior history of hyperlipidemia but that is now controlled without medication. Denies any cardiac history in the past including coronary artery disease. In the emergency department, a CT of the abdomen/pelvis was obtained which revealed a small bowel obstruction. He had a mild white count of 12k and an e levated lactic acid at 2.6. These findings were discussed with the general surgeon classified copy control clerk who recommended admission to the medicine service. He received a litre of saline, multiple doses of dilaudid IV, and zofran/phenergan IV for nausea. I did discuss goals of care with the patient and he would like to be a full code. - CONSULTS | PROCEDURES Consultations: Dr. Chanell Bennett, general surgery Procedures: None - HOSPITAL COURSE Hospital Course: Patient was admitted for symptoms of small bowel obstruction but very shortly after admission had symptomatic improvement. He was given as needed IV Dilaudid but used only minimal amounts and requiring only 1 dose in the morning after admission. Because he felt so comfortable, his diet was advanced to a clear liquid diet, and the decision was made to withhold a nasogastric tube. He did have bowel sounds but no bowel activity with no flatus or bowel movements for the first day. However, he improved overnight and by the second day of hospital stay, he had been passing flatus, had positive bowel sounds, had tolerated the clear liquid diet and was eventually advanced to a soft general diet and tolerated this well. He was deemed to be safe for medical discharge with a resolution of the small bowel obstruction and was given instructions for follow- up. - ALLERGIES Allergies/Adverse Reactions: Allergies Allergy/AdvReac Type Severity Reaction Status Date / Time No Known Drug Allergies Allergy Verified 06/13/19 23:13 - MEDICATIONS Home Medications: Ambulatory Orders Medication Instructions Recorded Confirmed Ascorbic Acid [Vitamin C] 400 mg PO DAILY 06/14/19 06/14/19 Cholecalciferol [Vitamin D3] 10,000 units PO DAILY 06/14/19 06/14/19 [place]-3S/Dha/Epa/Fish Oil [[place]-3 1 cap PO DAILY 06/14/19 06/14/19 Fish Oil 1,200 mg Sfgl] - PHYSICAL EXAM AT DISCHARGE General Appearance: positive: No acute distress Eyes Bilateral: positive: Normal inspection, PERRL ENT: positive: ENT inspection nml, Pharynx nml Neck: positive: Nml inspection, Thyroid nml, No JVD, Trachea midline Respiratory: positive: Chest non-tender, No respiratory distress Cardiovascular: positive: Regular rate & rhythm, No murmur, No gallop Peripheral Pulses: positive: 2+ Abdomen: positive: Non-tender, No organomegaly, Nml bowel sounds, No distention Skin: positive: Color nml Extremities: positive: Non-tender, No pedal edema Neurologic/Psychiatric: positive: Oriented x3, CN's nml (2-12) - LABS Result Diagrams: 06/15/19 05:20 06/15/19 05:20 - DIAGNOSTIC IMAGING Diagnostic Imaging Results: Final report reviewed - FOLLOW UP Follow Up: PCP - TIME SPENT Time Spent in Discharge (Minutes): 31"
== END 2019-06-15 15:31 | disposition home or self-care (01) | DRG 389 ==
LOC: ED 23:08 → MS2 06-14 02:17 → OBSVTOIN 06-14 18:37
PROVIDERS: ADMIT Internal Medicine; ATTEND Family Medicine Sports Medicine
DX: K56.609 Unspecified intestinal obstruction, unspecified as to partial versus complete obstruction (principal); K56.50 Intestinal adhesions [bands], unspecified as to partial versus complete obstruction; E87.1 Hypo-osmolality and hyponatremia; E87.6 Hypokalemia; F10.21 Alcohol dependence, in remission; R74.8 Abnormal levels of other serum enzymes; Z87.891 Personal history of nicotine dependence; Z96.659 Presence of unspecified artificial knee joint
CPT/HCPCS: 36415; 74177; 80048; 80053; 81003; 83036; 83605; 83690; 83735; 84100; 85025; 93005; 96361; 96365; 96366; 96372; 96375; 96376; 99285; G0378; J1170; J1650; J7040; J7120; Q9967; 81001; 87086